=== PATIENT | female | born 1955 ===

== ENCOUNTER 2018-04-25 11:00 | Outpatient (RCR) | payer OTHER, SELFPAY ==
--- NOTE | 2018-04-07 15:31 | IE_ITS ---
Date: 04/07/18 Referring: Nay Rosado MD M.D. Diagnosis: Concussion and Whiplash P.T. 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 She and her have recently moved from [place], but she works at the [employer]. She was walking towards her office, and caught her toe on a weight that was keeping the door open. Her head was flung directly into a CO2 tank. She does not remember losing consciousness, but she received a gash on her forehead that required stitches. She was placed in a neck brace. Since then she has been complaining of neck pain globally with any movement, dizziness that comes with any change of body position, light sensitivities, sound sensitivity. She tried to follow a concussion protocol by limiting her screen time,but her and her have been actively moving at their old house in [place]. When moving some of her packages she noticed that some of her movements were still troublesome by a high amount of equilibrium issues. She doesn't recall a spinning sensation, more of a equilibrium shift. She is foggy at times. Symptom Ratin/10 fogginess, 0/10 dizziness, headaches 4/10, nausea 0/10 , neck pain 5/10. Prior Level of Function: Unrestricted Current Level of Function: She is currently off work, and currently having difficulty lifting any objects up from the ground, difficulty changing body position. Previous Treatment: Nothing. Social: She recently moved with her from [place] into a camping trailer in [place] which they are waiting to build a new home. Comorbidities: THR (B), plantar fasciitis, HTN, Exercise controlled DM, Emergency Appendectomy and a torn meniscus. Medications: Lorazepam, Omeprazole, Bupropion Quality of Life: __X__ Good Standardized Measures: NDI score: __24% Disability__ OBJECTIVE: Posture: In standing, pt demonstrates a mild forward head position, but no sign of any rye neck or altered lateral shift of the thoracic and lumbar spine. Gait: Unremarkable with no evidence of any severe antalgia or ataxia. Pt can stand with closed AMANDA. Palpation: She is tender to palpation through the cervical spine, most notedly through the cervical paraspinals more in the lower cervical vertebrae region. The SFMA top tier assessment was completed with notable dysfunctional painful patterns at cervical spine flexion, rotation and extension. Dysfunctional non painful pattern, multisegmental trunk flexion through symptoms preventing further motion. Multisegmental extension and multisegmental rotation. Pt is able to conduct SLS up to 10 seconds without issues (B). ROM: Pt has 50% of available motion with pain at the end of tolerable range for cervical extension. Side bending, flexion and rotation 50% of available motion Shoulder AROM WNL Multisegmental trunk flexion 75% of normal motion due to symptomatic presentation with her dizziness with change in body position. Multisegmental extension limited to 25% of available motion due to stiffness through the spine that she describes as limiting and mild symptom provocation. Strength: Mid delt 5/5 (B) Biceps 5/5 Triceps 5/5 Wrist extension 5/5 Neuro: Pt intact to light touch sensation through UR dermatomes, motor control appears intact through associated myotomes, and pt demonstrates appropriate proprioception and kinesthetic awareness. Special Tests: VOR visual motion sensitivity are intact to 60 bpm with mild symptom provocation , no sign of ocular drift. Smooth pursuits and saccades are WNL with no sign of ocular drift. Minor symptom provocation, near point convergence greater than 10 cm with symptom provocation. Supine roll test is negative (B), VBI screening is negative (B), vitals in the sitting position is 130/68 HR of 68 in the standing position BP 139/70 HR 69. Treatment: Tx today including the initial evaluation and assessment of functional abilities as well as training in a formal exercise program. Pt demonstrated verbal acknowledgement and technique demonstration. IE: [id number] Direct treatment time: 60 minutes Total treatment time: 60 minutes ASSESSMENT: Patient is a 62-year-old female with a hx of good physical health , referred for PT services with the diagnosis of concussion and whiplash. Patient presents with clinical signs and symptoms consistent with this dx and mechanical derangement of the cervical spine, as demonstrated by the following impairment level findings: Limited active and passive cervical spine ROM, vestibular symptomatic response with change in body position, and significant tenderness and muscle tension through the cervical paraspinals. Impairments are contributing to the following functional limitations: Difficulty with work activity currently, difficulty performing any lifting or scraper tender. Patient is assessed as: __X__ Low 95564 ____ Moderate 55305 ____ High 77962 complexity, based on the following: History: Emergency Appendectomy, HTN, Exercise controlled DM, Plantar Fasciitis, (B) THR Examination: Stiffness and decreased ROM With pain through the cervical spine, vestibular effects negatively with change in body position and pain with palpation of the cervical paraspinals. Presentation: X Evolving Decision-Making: X Moderate complexity 24 % Disability based on NDI __X__ Patient requires skilled PT intervention to remediate the above functional limitations to return to: __X__ Premorbid level of function Prognosis: __X__ Good as evidence suggests improvement of functional abilities with compliance to a detailed HEP tailored to her dx and following through with PT intervention. STG: __2__ weeks. 1. Pt will be (I) with HEP both verbally and with ideal technique demonstration. LTG: __6__ weeks. 1. Pt able to lift an object 30# from the floor with ideal body mechanics including full change in body position with deep squat and femur parallel from the floor. 2. Pt able to return to a full functional work day without limitations. PLAN: Patient to be seen 2 x per week, for 6 weeks, adjusting frequency of visits per patient symptoms and response to treatment. Treatment to include: X NRE- Allowing for habituation type training to improve response to vestibular stimuli. X Manual therapy - [id number]: Utilized for enhancing muscle extensibility and improving joint arthrokinematics. X Therapeutic exercise - [id number] tactile cues, verbal education and advanced movement correctives for establishing muscle symmetry and improved cardiovascular endurance. X Ultrasound/ Estim for pain modulation as necessary. Pt will be monitored for compliance to HEP and pt status will be updated accordingly. Plan may be modified as symptoms dictate. Thank you for this referral. Please do not hesitate to contact me with any questions or concerns regarding this patient's plan of care.
--- NOTE | 2018-04-16 09:55 | PTTR_ITS ---
DATE: 04/16/18 SUBJECTIVE: i am doing okay for the most part. I think the move set me back a little bit but we needed to do it. OBJECTIVE: Manual therapy: ([id number]): Patient was placed in supine and mobilized with gentle traction through the cervical spine and guided into cervical retraction. She was then softly mobilized with lateral and PA segmental glides to promote light vertebral glide. She was side bended through available range with use of sustained articular mobs to facilitate pain free movement. OA nods for extension and flexion of the more proximal cervical spine completed and then full rotation of the cervical spine with guided support for maintained spinal neutrality. Soft tissue work was performed through the cervical paraspinals with good effect. Direct treatment time: 30 minutes of direct patient care.
--- NOTE | 2018-04-18 13:11 | PTTR_ITS ---
DATE: 04/18/18 SUBJECTIVE: I am doing okay for the most part. OBJECTIVE: Manual therapy: ([id number]): Patient was placed in supine and mobilized with gentle traction through the cervical spine while guided into unloaded cervical retraction. She was then mobilized with gentle PA and lateral glides through the cervical spine to decrease muscle tension. Patient then lightly stretched through the levator scapulae and upper trapezius with low load long duration holds. Patient mobilized with SNAGs as she was rotated from a corrected spinal position to full end range without deficit. Soft tissue work was completed through the mid to lower cervical paraspinals and suboccipital region. Direct treatment time: 30 minutes of direct patient care.
--- NOTE | 2018-04-23 11:43 | PTTR_ITS ---
DATE: 04/23/18 SUBJECTIVE: I am doing okay for the most part. Getting better each week I feel. OBJECTIVE: Manual therapy: ([id number]): In standing patient able to demonstrate loaded cervical spine motions with extension to 75%, rotation to 75% and flexion to 100 % of normal limit. Patient was placed in supine and mobilized with gentle traction through the cervical spine while unloaded into neutral cervical retraction. She was mobilized with soft stretch through the levator scapulae and upper trapezius with low load long duration holds. Patient was mobilized with use of lateral and PA glides through the lower cervical vertebrae while gently glided through side bending and extension within a limited arc of motion. Her rotation was mobilized through end range with light traction and unloaded spine. A suboccipital release was performed with ischemic press holds. Patient tolerated treatment well. Direct treatment time: 30 minutes of direct patient care.
--- NOTE | 2018-04-25 15:01 | PTTR_ITS ---
DATE: 04/25/18 SUBJECTIVE: I am doing really well. OBJECTIVE: Manual therapy: ([id number]): Patient was placed in supine and mobilized with gentle traction through the cervical spine while guided into an unloaded position of cervical retraction. Patient was guided through segmental lateral and PA glides through the cervical spine with good tolerance for grade III strength. She was stretched lightly through the upper trapezius, levator scapulae and scalenes with low load long duration holds. Segmental upslope and downslope techniques were applied to the lower cervical vertebrae with light rotation applied to facilitate articular motion. She tolerated end range rotation bilaterally well from supine in an unloaded spine position and treatment was finished with suboccipital release technique. Direct treatment time: 30 minutes of direct patient care.
== END 2018-04-25 23:59 | disposition home or self-care (01) ==
LOC: PT 11:00
PROVIDERS: PCP Internal Medicine; Referring Provider Family Medicine; Visit Provider Family Medicine
DX: S19.9XXD Unspecified injury of neck, subsequent encounter (principal); S06.0X0D Concussion without loss of consciousness, subsequent encounter
CPT/HCPCS: 97140; 97162